=== PATIENT | female | born 1950 | race African-American/Black ===

== ENCOUNTER 2017-09-09 17:52 | Emergency (ER) | payer MEDICARE, BC ==
[~2017-09-09] VITALS: Ht 167.6 cm; Wt 94.1 kg
[~2017-09-09 17:52] MED LIST: CITRACAL + D 311 TAB PO; DEXILANT PO; FORTAMET1000 MG PO; GLIPIZIDE5 MG PO; LASIX20 MG PO; POTASSIUM25 MEQ PO; PRAVASTATIN40 MG PO
[2017-09-09 18:01] VITALS: BP 145/86; TEMP 98.8
[2017-09-09 19:37] LABS: COLLECTION METHOD CLEAN CATCH
[2017-09-09] MEDS ORDERED: ZESTRIL 5MG5 MG PO (19:42)
[2017-09-09 19:43] LABS: MUCOUS Present /lpf; PH 6 (5-8); SQUAMOUS EPITHELIAL 0-2 /hpf; URINE APPEARANCE Clear; URINE BACTERIA None Seen /hpf; URINE BILIRUBIN Negative (NEGATIVE); URINE BLOOD Negative (NEGATIVE); URINE COLOR Yellow; URINE GLUCOSE 1+ (NEGATIVE); URINE KETONE 1+ (NEGATIVE); URINE LEUKOCYTE ESTERASE Negative (NEGATIVE); URINE PROTEIN(semi-quant) 1+ (NEGATIVE); URINE RBC 0-2 /hpf; URINE WBC 0-2 /hpf
[2017-09-09 19:59] LABS: BASO % 0.8 % (0.0-2.0); EOS % 0.2 % (0-4.0); GRAN # 3.7 (1.4-6.5); GRAN % 74.9 % (42.2-75.2); HEMATOCRIT 40.9 % (37.0-47.0); LYMPH # 0.5 (1.2-3.4); LYMPH % 10.6 % (20.0-51.0); MEAN CELL VOLUME 93 fl (80.0-100.0); MEAN CORPUSCULAR HEMOGLOBIN 30 pg (27.0-31.0); MEAN CORPUSCULAR HGB CONC 32 g/dl (33.0-37.0); MEAN PLATELET VOLUME 11.2 fl (7.4-10.4); MONO # 0.6 (0.1-0.6); MONO % 12.9 % (1.7-9.3); PLATELET COUNT 194 K/mm3 (130-400); RED BLOOD COUNT 4.39 M/mm3 (4.10-5.30)
[2017-09-09 20:09] LABS: ADJUSTED CALCIUM 9.2 mg/dL (8.4-10.2); ALBUMIN 4.7 gm/dL (3.5-5.0); BILIRUBIN,TOTAL 0.6 mg/dL (0.0-1.0); CALCIUM 9.8 mg/dL (8.4-10.2); CREATININE, serum 0.57 mg/dL (0.52-1.25); POTASSIUM 4.3 mmol/L (3.4-5.0)
[2017-09-09 20:17] LABS: INFLUENZA A POSITIVE; INFLUENZA B NEGATIVE
[2017-09-09 22:15] VITALS: PULSE 100
== END 2017-09-09 22:16 | disposition home or self-care (01) ==
LOC: COL.ER 17:52
PROVIDERS: Emergency Medicine
DX: J11.1 Influenza due to unidentified influenza virus with other respiratory manifestations (principal); E11.9 Type 2 diabetes mellitus without complications; I10 Essential (primary) hypertension; E78.5 Hyperlipidemia, unspecified; Z85.3 Personal history of malignant neoplasm of breast; Z79.84 Long term (current) use of oral hypoglycemic drugs; Z98.890 Other specified postprocedural states
CPT/HCPCS: J7030

== ENCOUNTER → 2019-03-05 | Outpatient (CLI) | payer MEDICARE, BC ==
[~2019-03-05] MED LIST changes: +ZESTRIL 5MG5 MG PO
== END ==
LOC: MHCPAIN 14:05
DX: G89.29 Other chronic pain (principal); M47.817 Spondylosis without myelopathy or radiculopathy, lumbosacral region; M54.16 Radiculopathy, lumbar region; M53.3 Sacrococcygeal disorders, not elsewhere classified; M96.1 Postlaminectomy syndrome, not elsewhere classified
CPT/HCPCS: G0463

== ENCOUNTER → 2019-07-30 | Outpatient (CLI) | payer MEDICARE, BC ==
[~2019-07-30] MED LIST changes: +AMARYL1 MG PO; +CITRACAL + D CA1 TAB PO; +DIPROSONE CR 45GM TP; +GLUCOPHAGE1000 MG PO; +K-DUR20 MEQ PO; +LASIX 20MG TABL20 MG PO; +MOBIC15 MG PO; +MULTIPLE VITAMI1 CAP PO; +NORCO 325 MG-101 TAB PO; +OZEMPIC0.25 MG/0. SQ; +PRINIVIL10 MG PO; +PROTONIX 40MG T40 MG PO; +ZOCOR 40MG40 MG PO
== END ==
LOC: MHCPAIN 14:51
DX: G89.29 Other chronic pain (principal); M47.817 Spondylosis without myelopathy or radiculopathy, lumbosacral region; M54.16 Radiculopathy, lumbar region; M53.3 Sacrococcygeal disorders, not elsewhere classified; M96.1 Postlaminectomy syndrome, not elsewhere classified
CPT/HCPCS: G0463

== ENCOUNTER → 2019-08-08 | Outpatient (CLI) | payer MEDICARE, BC | LOC: MHCPAIN 13:12 | DX: M47.817 Spondylosis without myelopathy or radiculopathy, lumbosacral region (principal); M54.16 Radiculopathy, lumbar region | CPT/HCPCS: J1100; Q9967 ==

== ENCOUNTER → 2019-08-28 | Outpatient (CLI) | payer MEDICARE, BC | LOC: MHCPAIN 13:03 | DX: M47.817 Spondylosis without myelopathy or radiculopathy, lumbosacral region (principal); M54.16 Radiculopathy, lumbar region | CPT/HCPCS: G0463 ==

== ENCOUNTER 2019-10-15 09:18 | Outpatient (CLI) | payer MEDICARE, BC ==
[~2019-10-15] VITALS: Ht 167.6 cm; Wt 84.6 kg
[2019-10-15 09:41] VITALS: BP 137/69; PULSE 94; TEMP 97.7
== END 2019-10-15 14:19 | disposition home or self-care (01) ==
LOC: EUO 09:18
DX: E86.0 Dehydration (principal)
CPT/HCPCS: J7030

== ENCOUNTER → 2019-10-24 | Outpatient (CLI) | payer MEDICARE, BC | LOC: MHCPAIN 09-12 14:59 | DX: M43.16 Spondylolisthesis, lumbar region (principal); M48.061 Spinal stenosis, lumbar region without neurogenic claudication | CPT/HCPCS: J1100; Q9967 ==

== ENCOUNTER → 2019-11-05 | Outpatient (CLI) | payer MEDICARE, BC | LOC: MHCPAIN 12:53 | DX: M54.5 Low back pain (principal); M53.3 Sacrococcygeal disorders, not elsewhere classified; M54.16 Radiculopathy, lumbar region | CPT/HCPCS: G0463 ==

== ENCOUNTER → 2020-02-25 | Outpatient (CLI) | payer MEDICARE, BC | LOC: MHCPAIN 13:03 | DX: M47.817 Spondylosis without myelopathy or radiculopathy, lumbosacral region (principal); M54.5 Low back pain; M53.3 Sacrococcygeal disorders, not elsewhere classified; M96.1 Postlaminectomy syndrome, not elsewhere classified; M54.18 Radiculopathy, sacral and sacrococcygeal region; G89.29 Other chronic pain | CPT/HCPCS: G0463 ==

== ENCOUNTER → 2020-03-10 | Outpatient (CLI) | payer MEDICARE, BC | LOC: COL.RAD 14:45 | DX: M48.061 Spinal stenosis, lumbar region without neurogenic claudication (principal); M43.16 Spondylolisthesis, lumbar region; M51.15 Intervertebral disc disorders with radiculopathy, thoracolumbar region ==

== ENCOUNTER 2020-10-18 15:44 | Emergency (ER) | payer MEDICARE, BC ==
[~2020-10-18] VITALS: Ht 167.6 cm; Wt 83.6 kg
[2020-10-18 16:26] LABS: BASO # 0.1 (0.0-0.2); BASO % 0.6 % (0.0-2.0); EOS # 0.3 (0.0-0.7); EOS % 3.7 % (0-4.0); GRAN # 6.3 (1.4-6.5); GRAN % 77.9 % (42.2-75.2); HEMATOCRIT 41.2 % (37.0-47.0); HEMOGLOBIN 13.1 g/dl (12.5-16.0); LYMPH # 0.5 (1.2-3.4); LYMPH % 6.4 % (20.0-51.0); MEAN CELL VOLUME 94 fl (80.0-100.0); MEAN CORPUSCULAR HEMOGLOBIN 30 pg (27.0-31.0); MEAN CORPUSCULAR HGB CONC 32 g/dl (33.0-37.0); MONO # 0.9 (0.1-0.6); MONO % 11.2 % (1.7-9.3); PLATELET COUNT 186 K/mm3 (130-400); RED BLOOD COUNT 4.39 M/mm3 (4.10-5.30)
[2020-10-18 16:47] LABS: ALANINE AMINOTRANSFERASE 18 U/L (4-34); ALBUMIN 4.5 gm/dL (3.5-5.0); ALKALINE PHOSPHATASE 91 U/L (50-136); ANION GAP 9 mmol/L (7-16); AST,SGOT 23 U/L (15-37); BILIRUBIN,TOTAL 0.4 mg/dL (0.0-1.0); BLOOD UREA NITROGEN 15 mg/dL (7-17); C-REACTIVE PROTEIN 0.8 mg/dL (0.0-0.9); CALCIUM 9.2 mg/dL (8.4-10.2); CARBON DIOXIDE 27 mmol/L (22-30); CHLORIDE 97 mmol/L (98-107); CREATININE, serum 0.63 (0.52-1.25); GLUCOSE 160 mg/dL (74-106); POTASSIUM 3.7 mmol/L (3.4-5.0); SODIUM 133 mmol/L (137-145); TOTAL PROTEIN 7.5 gm/dL (6.4-8.2)
[2020-10-18 16:59] LABS: TROPONIN-I < 0.012 ng/mL (0.000-0.035)
[2020-10-18 17:18] LABS: COLLECTION METHOD CLEAN CATCH
[2020-10-18 17:24] LABS: PH 6 (5-8); SQUAMOUS EPITHELIAL 0-2 /hpf; URINE APPEARANCE Clear; URINE BACTERIA None Seen /hpf; URINE BILIRUBIN Negative (NEGATIVE); URINE BLOOD Negative (NEGATIVE); URINE COLOR Straw; URINE GLUCOSE 1+ (NEGATIVE); URINE KETONE Negative (NEGATIVE); URINE LEUKOCYTE ESTERASE Negative (NEGATIVE); URINE NITRATE Negative (NEGATIVE); URINE PROTEIN(semi-quant) Negative (NEGATIVE); URINE RBC 0-2 /hpf; URINE UROBILINOGEN Negative (NEGATIVE)
[2020-10-18 20:45] VITALS: BP 152/86; PULSE 106; TEMP 98.8
== END 2020-10-18 20:45 | disposition home or self-care (01) ==
LOC: COL.ER 15:44
PROVIDERS: Nurse Practitioner Primary Care
DX: U07.1 COVID-19 (principal); E11.9 Type 2 diabetes mellitus without complications; I10 Essential (primary) hypertension; E78.5 Hyperlipidemia, unspecified; K21.9 Gastro-esophageal reflux disease without esophagitis; Z85.3 Personal history of malignant neoplasm of breast; Z88.1 Allergy status to other antibiotic agents; Z79.84 Long term (current) use of oral hypoglycemic drugs
CPT/HCPCS: J7030

== ENCOUNTER 2020-10-21 14:05 | Outpatient (CLI) | payer MEDICARE, BC ==
[~2020-10-21] VITALS: Ht 167.6 cm; Wt 83.0 kg
[2020-10-21] VITALS (7 sets, daily range): BP systolic 122–150; BP diastolic 68–96; PULSE 102–114; TEMP 98.4
[2020-10-21] MEDS ORDERED: CYMBALTA 60MG60 MG PO (15:41)
--- NOTE | 2020-10-21 17:00 | NUR ---
Pt tolerated BAM infusion without any adverse or allergic reaction. Pt is ambulatory with steady gait to exit.
== END 2020-10-21 17:39 | disposition home or self-care (01) ==
LOC: EUO 14:05
DX: U07.1 COVID-19 (principal)
CPT/HCPCS: J7050